=== PATIENT | female | born 1995 | race Caucasian/White ===

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

== ENCOUNTER 2017-01-03 20:17 | Emergency (ER) | payer OTHER ==
[~2017-01-03] VITALS: Ht 172.7 cm; Wt 124.7 kg
[2017-01-03 21:41] LABS: HEMATOCRIT 41.5 % (36.0-46.0); MCHC 33.7 G/DL (30.0-36.0); MEAN PLAT.VOLUME 10.7 uM^3 (9.5-12.4); PLATELET COUNT 292 K/uL (156-360); RBC DIS.WIDTH-CV 13.5 % (11.8-14.6); RBC DIS.WIDTH-SD 40.6 % (39-53); WHITE BLOOD COUNT 13.5 K/uL (4.1-10.2)
[2017-01-03 21:49] LABS: CHLORIDE 108 mEq/L (99-109); POTASSIUM 3.9 mEq/L (3.7-5.4); SODIUM 140 mEq/L (136-147)
[2017-01-03 21:51] LABS: GLUCOSE 112 mg/dL (70-99)
[2017-01-03 21:52] LABS: ANION GAP 9 MEQ/L (2-14)
[2017-01-03 21:54] LABS: SERUM ETHYL ALCOHOL < 10 mg/dL
[2017-01-03 21:55] LABS: GFR ESTIMATE (CALCULATED) > 59 mL/min/
[2017-01-03 21:56] LABS: UREA NITROGEN (BUN) 11 mg/dL (9-23)
[2017-01-03 22:03] LABS: QUANTITATIVE HCG < 4.0 MIU/ML
[2017-01-03 22:07] LABS: AMPHETAMINE NEGATIVE (500 ng/mL); BARBITURATES NEGATIVE (200 ng/mL); BENZODIAZEPINES NEGATIVE (150 ng/mL); COCAINE NEGATIVE (150 ng/mL); INTERNAL CONTROLS VALID? YES; METHADONE NEGATIVE (200 ng/mL); METHAMPHETAMINE NEGATIVE (500 ng/mL); OPIATES (MORPHINE) NEGATIVE (100 ng/mL); OXYCODONE NEGATIVE (100 ng/mL); PHENCYCLIDINE NEGATIVE (25 ng/mL); PROPOXYPHENE NEGATIVE (300 ng/mL); THC CANNABINOIDS NEGATIVE (50 ng/mL); TRICYCLIC ANTIDEPRESSANTS NEGATIVE (300 ng/mL)
[2017-01-04 05:58] VITALS: BP 111/66
== END 2017-01-04 05:30 ==
LOC: EME → EDBD 20:17 → EME 20:17
DX: R45.851 Suicidal ideations (principal); F32.9 Major depressive disorder, single episode, unspecified; F60.9 Personality disorder, unspecified; K21.9 Gastro-esophageal reflux disease without esophagitis; F17.200 Nicotine dependence, unspecified, uncomplicated
CPT/HCPCS: 80048; 84702; 85027; 90837; 99281; 99285; G0480

== ENCOUNTER 2017-01-07 19:03 | Emergency (ER) | payer OTHER ==
[~2017-01-07] VITALS: Ht 172.7 cm; Wt 122.3 kg
[2017-01-07 20:01] LABS: ADD MIUA? YES; BILIRUBIN NEGATIVE; BLOOD MODERATE; COLOR YELLOW ((YELLOW)); GLUCOSE (STRIP) NEGATIVE; KETONES NEGATIVE; LEUKOCYTES SMALL; NITRITE NEGATIVE; PROTEIN (STRIP) NEGATIVE; SPECIFIC GRAVITY 1.016 (1.000-1.030); UROBILINOGEN 0.2 MG/DL (0.2-1.0)
[2017-01-07 20:10] LABS: AMPHETAMINE NEGATIVE (500 ng/mL); BARBITURATES NEGATIVE (200 ng/mL); BENZODIAZEPINES NEGATIVE (150 ng/mL); COCAINE NEGATIVE (150 ng/mL); INTERNAL CONTROLS VALID? YES; METHADONE NEGATIVE (200 ng/mL); METHAMPHETAMINE NEGATIVE (500 ng/mL); OPIATES (MORPHINE) NEGATIVE (100 ng/mL); OXYCODONE NEGATIVE (100 ng/mL); PHENCYCLIDINE NEGATIVE (25 ng/mL); PROPOXYPHENE NEGATIVE (300 ng/mL); THC CANNABINOIDS NEGATIVE (50 ng/mL); TRICYCLIC ANTIDEPRESSANTS NEGATIVE (300 ng/mL)
[2017-01-07 20:11] LABS: BACTERIA RARE /HPF; EPITHELIAL CELLS 1+ /HPF; MUCUS TRACE /LPF; UCUL ADDED? YES
[2017-01-07 20:16] LABS: BASOPHIL COUNT 0.1 K/uL (0-0.1); EOSINOPHIL COUNT 0.4 K/uL (0-0.3); HEMATOCRIT 41.5 % (36.0-46.0); IMMATURE GRANULOCYTE (%) 0.8 % (0.0-0.7); IMMATURE GRANULOCYTE COUNT 0.2 K/uL; INSTRUMENT ABS NEUTROPHIL CT 11.4 K/uL; LYMPHOCYTE COUNT 5.4 K/uL (1.0-2.8); MCH 27.9 PG (29.0-34.0); MCHC 33.7 G/DL (30.0-36.0); MCV 82.7 FL (83-99); MEAN PLAT.VOLUME 10.7 uM^3 (9.5-12.4); MONOCYTE COUNT 1.3 K/uL (0-0.8); NEUTROPHIL (%) 61.1 % (45-76); NEUTROPHIL COUNT 11.4 K/uL (1.8-6.4); PLATELET COUNT 303 K/uL (156-360); RBC DIS.WIDTH-CV 13.3 % (11.8-14.6); RBC DIS.WIDTH-SD 39.9 % (39-53); RED BLOOD COUNT 5.02 M/uL (3.80-5.20); WHITE BLOOD COUNT 18.7 K/uL (4.1-10.2)
[2017-01-07 20:26] LABS: CHLORIDE 108 mEq/L (99-109); POTASSIUM 4.2 mEq/L (3.7-5.4); SODIUM 140 mEq/L (136-147)
[2017-01-07 20:29] LABS: GLUCOSE 86 mg/dL (70-99)
[2017-01-07 20:30] LABS: ANION GAP 9 MEQ/L (2-14)
[2017-01-07 20:31] LABS: TOTAL BILIRUBIN 0.3 mg/dL (0.0-1.0)
[2017-01-07 20:32] LABS: ALKALINE PHOSPHATASE 104 IU/L (3-129); SERUM ETHYL ALCOHOL < 10 mg/dL
[2017-01-07 20:33] LABS: GFR ESTIMATE (CALCULATED) > 59 mL/min/
[2017-01-07 20:34] LABS: UREA NITROGEN (BUN) 15 mg/dL (9-23)
[2017-01-07 20:36] LABS: QUANTITATIVE HCG < 4.0 MIU/ML
[2017-01-08 02:01] VITALS: BP 134/83
== END 2017-01-08 02:02 ==
LOC: EME → EDBD 19:03 → EME 01-08 02:02
PROVIDERS: Emergency Medicine
DX: F32.9 Major depressive disorder, single episode, unspecified (principal); F60.9 Personality disorder, unspecified; R41.83 Borderline intellectual functioning; F42.9 Obsessive-compulsive disorder, unspecified; K21.9 Gastro-esophageal reflux disease without esophagitis; F17.200 Nicotine dependence, unspecified, uncomplicated; E66.9 Obesity, unspecified
CPT/HCPCS: 80053; 81003; 84702; 85025; 87086; 90837; 99281; 99284; G0480

== ENCOUNTER 2017-02-22 18:47 | Emergency (ER) | payer OTHER ==
[~2017-02-22] VITALS: Ht 172.7 cm; Wt 123.3 kg
[2017-02-22 20:00] VITALS: BP 113/78
== END 2017-02-22 20:01 | disposition home or self-care (01) ==
LOC: EME → EDBD 18:47 → EME 20:01
DX: F32.9 Major depressive disorder, single episode, unspecified (principal); F90.9 Attention-deficit hyperactivity disorder, unspecified type; F91.3 Oppositional defiant disorder; F39 Unspecified mood [affective] disorder; K21.9 Gastro-esophageal reflux disease without esophagitis; E66.9 Obesity, unspecified; Z68.41 Body mass index [BMI] 40.0-44.9, adult; F17.200 Nicotine dependence, unspecified, uncomplicated
CPT/HCPCS: 99281; 99284

== ENCOUNTER 2017-05-23 18:50 | Emergency (ER) | payer OTHER ==
[~2017-05-23] VITALS: Ht 172.7 cm; Wt 125.1 kg
[2017-05-23] MEDS ORDERED: FLONASE16 G1 BOTH NARES (20:00)
[2017-05-23 20:18] VITALS: BP 123/82
== END 2017-05-23 20:22 | disposition home or self-care (01) ==
LOC: EME 18:50
DX: H65.93 Unspecified nonsuppurative otitis media, bilateral (principal); F31.9 Bipolar disorder, unspecified; F90.9 Attention-deficit hyperactivity disorder, unspecified type
CPT/HCPCS: 99281; 99283